=== PATIENT | male | born 1995 | race Caucasian/White ===

== ENCOUNTER 2018-07-18 14:17 | Emergency (ER) | payer MEDICAID ==
[~2018-07-18] VITALS: Ht 175.3 cm; Wt 71.7 kg
[2018-07-18 14:30] VITALS: BP 134/83; Ht 175.3 cm; Wt 71.7 kg
== END 2018-07-18 15:58 | disposition home or self-care (01) ==
LOC: ED 14:17
DX: H72.92 Unspecified perforation of tympanic membrane, left ear (principal)